=== PATIENT | female | born 1975 | race Caucasian/White ===

== ENCOUNTER 2017-09-21 12:41 | Emergency (ER) | payer OTHER ==
[2017-09-21 13:56] LABS: #Eosinphils 0.2 thou/uL (0.0-0.7); #Lymphocytes 3.3 thou/uL (1.20-3.40); #Neutrophils 12.3 thou/uL (1.40-6.50); %Basophils 0.3 % (0.0-1.0); %Eosinophils 0.9 % (0.0-10.0); %Lymphocytes 19.8 % (21.0-51.0); %Monocytes 5.7 % (0.0-10.0); %Neutrophils 73.3 % (42.0-75.0); Hemoglobin 13.9 g/dL (12.0-16.0); Mean Corpuscular HGB CONC 34.2 g/dL (32.0-36.0); Mean Corpuscular Hemoglobin 29.4 pg (27.0-31.0); Mean Corpuscular Volume 86.1 fl (81.0-99.0); Mean Platelet Volume 6.8 fL (7.4-10.4); Platelet Count 360 thou/uL (130-400); RBC Distribution Width 11.6 % (11.5-14.5); Red Blood Cell (RBC) Count 4.74 mill/uL (4.20-5.40); White Blood Cell (WBC) Count 16.8 thou/uL (4.8-10.8)
[2017-09-21 14:19] LABS: ALT (SGPT) 21 U/L (8-55); AST (SGOT) 16 U/L (5-34); Albumin 3.7 g/dL (3.5-5.0); Alkaline Phosphatase 118 U/L (40-150); Anion Gap 17 mmol/L (10-20); BUN (Urea Nitrogen) 7 mg/dL (7.0-18.7); Bilirubin, Total 0.4 mg/dL (0.2-1.2); CK (CPK) 89 U/L (29-168); Calc. Creatinine Clearance 0 mL/min (70-130); Calcium 9.7 mg/dL (7.8-10.44); Carbon Dioxide 23 mmol/L (22-29); Chloride 100 mmol/L (98-107); Estimated GFR-MDRD 82; Globulin 3.6 g/dL (2.4-3.5); Glucose 337 mg/dL (70-105); Potassium 4.1 mmol/L (3.5-5.1); Protein, Total 7.3 g/dL (6.0-8.3); Sodium 136 mmol/L (136-145)
[2017-09-21 14:21] LABS: CKMB 0.3 ng/mL (0-6.6); Troponin I Less than 0.010 ng/mL (< 0.028)
--- NOTE | 2017-09-21 15:09 | RAD ---
UPRIGHT PORTABLE CHEST ONE VIEW: History: 42-year-old female with chest pain with diagnosis of bronchitis, not getting better. FINDINGS: Monitor leads overlie the chest. Heart size is normal. The lungs are clear. IMPRESSION: No acute thoracic disease. POS: C
--- NOTE | 2017-09-21 15:48 | CT ---
NONCONTRAST CT OF THE THORAX: INDICATION: Cough. COMPARISON: Chest radiograph dated 09/21/17. FINDINGS: There are patchy areas of reticulonodularity seen within the lower lobes as well as within the right upper lobe with more peripheral ground-glass opacities seen within the right upper lobe and left lowe r lobe. Findings are suspicious for multifocal bronchopneumonia. There are some patchy areas of ret iculonodularity also present within the left upper lobe. No alannah airspace consolidation, pleural ef fusion, or pneumothorax is evident. No definite pathologically enlarged lymph nodes are evident. So me shotty-appearing lymph nodes are seen within the mediastinum. Visualized upper abdomen is unremar kable for acute abnormality. There is scattered degenerative and osteoarthritic change. There is a loop recorder overlying the patient's left chest wall. IMPRESSION: Scattered areas of reticulonodularity with peripheral nodular ground-glass opacities suspicious for m ultifocal bronchopneumonia. Recommend a followup CT examination in 6-8 weeks to document resolution. POS: [place]
== END 2017-09-21 17:10 | disposition home or self-care (01) ==
LOC: ERS 12:41
DX: J18.9 Pneumonia, unspecified organism (principal); E28.2 Polycystic ovarian syndrome; I47.1 Supraventricular tachycardia; E11.9 Type 2 diabetes mellitus without complications; F41.9 Anxiety disorder, unspecified; Z79.4 Long term (current) use of insulin
CPT/HCPCS: 36415; 71045; 71250; 80053; 82550; 82553; 84484; 85025; 87040; 93005